=== PATIENT | male | born 1980 | race Two or more races ===

== ENCOUNTER → 2022-05-03 11:12 | Outpatient (BNVA) | payer SELFPAY | PROVIDERS: PCP Physician Assistant Medical; Visit Provider Internal Medicine | DX: Z02.79 Encounter for issue of other medical certificate (principal) ==

== ENCOUNTER → 2024-06-04 13:53 | Outpatient (BNVA) | payer SELFPAY | PROVIDERS: PCP Physician Assistant Medical; Visit Provider Physician Assistant | DX: Z02.79 Encounter for issue of other medical certificate (principal) ==

== ENCOUNTER 2024-10-06 09:15 | Outpatient (RCR) | payer OTHER, SELFPAY | END 2024-10-06 11:18 | disposition home or self-care (01) | LOC: HO.WCC 09:15 | PROVIDERS: Visit Provider Surgery | DX: L97.812 Non-pressure chronic ulcer of other part of right lower leg with fat layer exposed (principal); L73.2 Hidradenitis suppurativa | CPT/HCPCS: 11042; 11104; 17250; 88304; 88312; 99211; 99212; 99213 ==